=== PATIENT | female | born 1995 | race Caucasian/White ===

== ENCOUNTER 2018-12-05 22:04 | Emergency (ER) | payer OTHER ==
[~2018-12-05] VITALS: Ht 160 cm; Wt 61.2 kg
[2018-12-05 22:22] VITALS: BP 116/74; Ht 160 cm; Wt 61.2 kg
== END 2018-12-06 01:40 | disposition home or self-care (01) ==
LOC: ED 22:04
DX: R10.30 Lower abdominal pain, unspecified (principal); R14.0 Abdominal distension (gaseous)